=== PATIENT | male | born 1965 | race American Indian/Alaskan Native ===

== ENCOUNTER 2017-01-25 22:30 | Emergency (ER) | payer OTHER ==
[2017-01-25] MEDS ORDERED: TYLENOL PO ONE (23:58)
[2017-01-26 00:18] LABS: Hematocrit 44.1 % (35.5-45.6); Hemoglobin 14.7 gm/dl (11.8-15.2); Mean Corpuscular HGB Conc 33 % (32-34); Mean Corpuscular Hemoglobin 27 pg (28-32); Mean Corpuscular Volume 81 fl (84-94); Red Blood Count 5.45 M/mm3 (3.65-5.03); Red Cell Distribution Width 13.7 % (13.2-15.2); White Blood Count 16.7 K/mm3 (4.5-11.0)
[2017-01-26 00:26] LABS: Platelet Count 280 K/mm3 (140-440)
[2017-01-26 00:47] LABS: BUN/Creatinine Ratio 12.66; Blood Urea Nitrogen 19 mg/dL (9-20); Calcium 9.8 mg/dL (8.4-10.2); Carbon Dioxide 20 mmol/L (22-30); Chloride 95.9 mmol/L (98-107); Glucose 112 mg/dL (75-100); Sodium 133 mmol/L (137-145)
[2017-01-26 01:18] LABS: Anion Gap 21 mmol/L; Potassium 4.2 mmol/L (3.6-5.0)
[2017-01-26 03:40] LABS: Bilirubin,Urine NEG (Negative); Blood,Urine SM (Negative); Ketones,Urine NEG (Negative); Leukocyte Esterase,Urine NEG (Negative); Mucus,Urine FEW /HPF; Nitrite,Urine NEG (Negative); Protein,Urine <15 mg/dL mg/dL (Negative); Urobilinogen,Urine < 2.0 mg/dL (<2.0)
[2017-01-26 03:51] LABS: Anisocytosis 1+; Blastocytes % (Manual) 0 %; Eosinophils % (Manual) 0 % (0.0-4.3)
[2017-01-26 03:52] LABS: Diff Status Complete; Hypochromasia Few; Toxic Vacuolation Few
[2017-01-26 04:00] VITALS: BP 128/80
--- NOTE | 2017-01-26 04:04 | Emergency Department Report ---
HPI - General Chief Complaint: Fever Time Seen by Provider: 01/26/17 02:57 - HPI HPI: This is a 51-year-old -[place] male presents to the emergency department with a few different complaints. First the patient has been having a 1-2 day history of fever that for him reached a MAXIMUM TEMPERATURE of 99.6. He denies any sore throat, cough, chest pain, shortness of breath, rash but does admit to some slight dysuria. He also complains of some elevated blood pressure. He checked it at home earlier and it was about 158/94. For this reason he took an extra lisinopril and called EMS. His third complaint is some swelling in the bilateral lower extremities that has been going on for weeks. He has seen his primary care physician about this, Dr. Wharton, and is set up for a cardiology appointment in the next week or so. He has been taking some Tylenol for his fever. No recent travel or sick contacts at home. He has a past history of hypertension. ED Past Medical Hx - Past Medical History Previous Medical History?: Yes Hx Hypertension: Yes - Surgical History Past Surgical History?: Yes Hx Appendectomy: Yes Additional Surgical History: Hernia repairs at 7 yrs old, 14 years old, and at 21 years old. - Social History Smoking Status: Never Smoker - Medications Home Medications: Home Medications Medication Instructions Recorded Confirmed Last Taken Type Cyclobenzaprine [Flexeril] 10 mg PO Q8H PRN #21 tablet 05/10/15 Unknown Rx Cyclobenzaprine [Flexeril] 10 mg PO TID PRN 05/10/15 05/10/15 Unknown History Ibuprofen [Motrin 800 MG tab] 800 mg PO Q8HR PRN #30 tablet 05/10/15 Unknown Rx amLODIPine [Norvasc] 10 mg PO DAILY 05/10/15 05/10/15 Unknown History Nitrofurantoin [place]/M-Cryst 100 mg PO Q12HR #14 capsule 01/26/17 Unknown Rx [Macrobid CAP] ED Review of Systems ROS: Stated complaint: HYPERTENSION,FEVER Other details as noted in HPI Comment: All other systems reviewed and negative Constitutional: fever. denies: weakness Eyes: denies: eye pain, eye discharge, vision change ENT: denies: ear pain, throat pain Respiratory: denies: cough, shortness of breath Cardiovascular: edema. denies: chest pain Gastrointestinal: denies: abdominal pain, nausea, diarrhea Genitourinary: dysuria. denies: discharge Musculoskeletal: denies: back pain, arthralgia Skin: denies: rash, lesions Neurological: denies: headache, weakness, paresthesias Physical Exam - Physical Exam Vital Signs: Vital Signs 01/25/17 01/26/17 01/26/17 23:29 00:05 02:29 Temperature 99.9 F H Pulse Rate 122 H 106 H Respiratory 20 20 15 Rate Blood Pressure 153/101 O2 Sat by Pulse 99 98 Oximetry 01/26/17 01/26/17 01/26/17 02:30 03:00 03:30 Temperature Pulse Rate 103 H 100 H 97 H Respiratory 21 24 22 Rate Blood Pressure 125/77 131/82 128/80 O2 Sat by Pulse 98 Oximetry Physical Exam: GENERAL: The patient is well-developed well-nourished. HENT: Normocephalic. Atraumatic. Patient has moist mucous membranes. Oropharynx is clear. EYES: Extraocular motions are intact. Pupils equal reactive to light bilaterally. NECK: Supple. Trachea is midline. CHEST/LUNGS: Clear to auscultation. There is no respiratory distress noted. No tachypnea or accessory muscle use. HEART/CARDIOVASCULAR: Regular. There is very mild tachycardia. There is no gallop rub or murmur. ABDOMEN: Abdomen is soft, nontender. Patient has normal bowel sounds. There is no abdominal distention. SKIN: Skin is warm and dry. I do not appreciate any significant lower extremity edema. NEURO: The patient is awake, alert, and oriented. The patient is cooperative. The patient has no focal neurologic deficits. The patient has normal speech and gait. MUSCULOSKELETAL: There is no tenderness or deformity. There is no limitation range of motion. There is no evidence of acute injury. ED Course Vital Signs 01/25/17 01/26/17 01/26/17 23:29 00:05 02:29 Temperature 99.9 F H Pulse Rate 122 H 106 H Respiratory 20 20 15 Rate Blood Pressure 153/101 O2 Sat by Pulse 99 98 Oximetry 01/26/17 01/26/17 01/26/17 02:30 03:00 03:30 Temperature Pulse Rate 103 H 100 H 97 H Respiratory 21 24 22 Rate Blood Pressure 125/77 131/82 128/80 O2 Sat by Pulse 98 Oximetry ED Medical Decision Making - Lab Data Result diagrams: 01/25/17 23:55 01/25/17 23:55 - EKG Data -: EKG Interpreted by Me EKG shows normal: sinus rhythm, axis, intervals, QRS complexes (T waves to the septal and inferior leads), ST-T waves Rate: tachycardia (113 bpm) - EKG Data When compared to previous EKG there are: previous EKG unavailable Interpretation: other (sinus tachycardia, Q waves to the inferior and septal leads) - Medical Decision Making 51-year-old male presents to the emergency department with the complaint of a low-grade fever, some lower leg pain and swelling, and some elevated blood pressure. He had taken a lisinopril but his blood pressure is reasonable by the time he is in the emergency department. He was given a dose of Tylenol and upon reevaluation his fever has resolved in the previous tachycardia has also resolved. I cannot appreciate any significant lower extremity swelling but he feels that it is swollen and slightly tender. He does not have any chest pain or shortness of breath. Vital signs stable throughout his ED course. He was discharged home with instructions and an order to return to outpatient imaging for lower extremity venous Dopplers. If positive for DVT he will be redirected to the emergency department. If negative he will continue to see his PCP and epic cupid analyst as previously scheduled. I missed seeing that he had a slight urinary tract infection but he was prescribed Macrobid and he'll be notified that he can pick it up in the emergency department when he comes in for his venous Doppler. - Differential Diagnosis DVT, UTI, viral syndrome, venous stasis Critical Care Time: No Critical care attestation.: If time is entered above; I have spent that time in minutes in the direct care of this critically ill patient, excluding procedure time. ED Disposition Clinical Impression: Leg swelling Fever Qualifiers: Fever type: unspecified Qualified Code(s): R50.9 - Fever, unspecified Hypertension Qualifiers: Hypertension type: essential hypertension Qualified Code(s): I10 - Essential ( primary) hypertension Disposition: DC- TO HOME OR SELFCARE Is pt being admited?: No Condition: Stable Instructions: Fever in Adults (ED), Leg Edema (ED), Hypertension (ED) Additional Instructions: Please call the phone number and make an appointment to return tomorrow for the outpatient imaging center to have a venous Doppler ultrasound done of the bilateral lower extremities. If it is positive, he will be redirected to the emergency department. If negative, follow up with your primary care physician and the epic cupid analyst as previously scheduled. Try to stay away from foods that are high in salt and caffeinated products to try and help her blood pressure. Keep a blood pressure log. Return to the emergency Department with any worsening of your symptoms or any acute distress. You can use Tylenol every 4 hours and ibuprofen every 6 hours, using weight- based dosing, as needed for fever or discomfort. Referrals: PRIMARY CAREMD [Primary Care Provider] - [facility] Time of Disposition: 04:10
== END 2017-01-26 04:15 | disposition home or self-care (01) ==
LOC: ED 22:30
DX: I10 Essential (primary) hypertension (principal); R50.9 Fever, unspecified; M79.89 Other specified soft tissue disorders
CPT/HCPCS: 36415; 80048; 81001; 83880; 84484; 85007; 85025; 93005; 93010; 99284

== ENCOUNTER 2017-01-26 15:02 | Outpatient (CLI) | payer OTHER ==
--- NOTE | 2017-01-28 07:50 | Vascular Lab Report ---
LOWER EXTREMITY VENOUS DUPLEX: REASON FOR EXAM: Pain and swelling of the lower extremities. COMMENTS ON THE RIGHT: All veins visualized are freely compressible without evidence of internal echogenicity. Flow is spontaneous and phasic throughout. COMMENTS ON THE LEFT: All veins visualized are freely compressible without evidence of internal echogenicity. Flow is spontaneous and phasic throughout. Superficial thrombophlebitis noted in the distal greater saphenous vein IMPRESSION: No evidence of acute or chronic deep venous thrombosis in either lower extremity. Superficial thrombophlebitis in the left greater saphenous vein
== END 2017-01-26 15:03 | disposition home or self-care (01) ==
LOC: VAS 15:02
PROVIDERS: ATTEND Emergency Medicine
DX: I80.02 Phlebitis and thrombophlebitis of superficial vessels of left lower extremity (principal); M79.604 Pain in right leg; M79.89 Other specified soft tissue disorders; I10 Essential (primary) hypertension
CPT/HCPCS: 93970

== ENCOUNTER 2017-04-23 12:32 | Inpatient (IN) | payer OTHER ==
[2017-04-23 13:26] LABS: Basophils % (Auto) 0.8 % (0.0-1.8); Hematocrit 37.9 % (35.5-45.6); Hemoglobin 12.5 gm/dl (11.8-15.2); Mean Corpuscular HGB Conc 33 % (32-34); Mean Corpuscular Hemoglobin 27 pg (28-32); Mean Corpuscular Volume 82 fl (84-94); Platelet Count 510 K/mm3 (140-440); Red Blood Count 4.63 M/mm3 (3.65-5.03); Red Cell Distribution Width 15.1 % (13.2-15.2); White Blood Count 11.1 K/mm3 (4.5-11.0)
[2017-04-23 13:29] LABS: Anion Gap 19 mmol/L; BUN/Creatinine Ratio 31; Blood Urea Nitrogen 43 mg/dL (9-20); Calcium 9.5 mg/dL (8.4-10.2); Carbon Dioxide 27 mmol/L (22-30); Chloride 94.1 mmol/L (98-107); Glucose 154 mg/dL (75-100); Potassium 3.4 mmol/L (3.6-5.0); Sodium 137 mmol/L (137-145)
[2017-04-23] MEDS ORDERED: LOVENOX SUB-Q ONE (13:58)
[2017-04-23] MEDS ORDERED: ZOFRAN IV ONE (14:04)
[2017-04-23] MEDS ORDERED: SUBLIMAZE IV ONE (14:04)
--- NOTE | 2017-04-23 14:12 | Emergency Department Report ---
HPI - General Chief Complaint: Extremity Injury, Lower Time Seen by Provider: 04/23/17 13:55 - HPI HPI: Room 5 The patient is a 51-year-old male presenting with chief complaint of left lower extremities pain and swelling. The patient states in January 2017 diagnosed with a superficial venous thrombosis of the left lower extremity. The patient' s states he was started on aspirin and the pain and swelling decrease however last month he noticed swelling and pain and return. Patient denies chest pain but states he has shortness of breath earlier this month. Patient denies pleurisy. Patient gives his leg pain a score of 10/10 Location: Left lower extremity, see above Duration: [See above] Quality: Pain Severity: 10/10 Modifying factors: [see above] Context: [see above] Mode of transportation: [not driving] ED Past Medical Hx - Past Medical History Hx Hypertension: Yes Additional medical history: Superficial DVT - Surgical History Hx Appendectomy: Yes Additional Surgical History: Hernia repairs at 7 yrs old, 14 years old, and at 21 years old. - Family History Family history: no significant - Social History Smoking Status: Never Smoker Substance Use Type: None - Medications Home Medications: Home Medications Medication Instructions Recorded Confirmed Last Taken Type Cyclobenzaprine [Flexeril] 10 mg PO Q8H PRN #21 tablet 05/10/15 Unknown Rx Cyclobenzaprine [Flexeril] 10 mg PO TID PRN 05/10/15 05/10/15 Unknown History Ibuprofen [Motrin 800 MG tab] 800 mg PO Q8HR PRN #30 tablet 05/10/15 Unknown Rx amLODIPine [Norvasc] 10 mg PO DAILY 05/10/15 05/10/15 Unknown History Nitrofurantoin [place]/M-Cryst 100 mg PO Q12HR #14 capsule 01/26/17 Unknown Rx [Macrobid CAP] ED Review of Systems ROS: Stated complaint: POSS DVT Other details as noted in HPI Respiratory: shortness of breath Cardiovascular: denies: chest pain Musculoskeletal: myalgia Physical Exam - Physical Exam Vital Signs: Vital Signs 04/23/17 12:51 Temperature 98.1 F Pulse Rate 111 H Respiratory 16 Rate Blood Pressure 126/68 O2 Sat by Pulse 98 Oximetry Physical Exam: GENERAL: The patient is well-developed well-nourished male lying on stretcher using cellphone not appearing to be in acute distress. [] HEENT: Normocephalic. Atraumatic. Extraocular motions are intact. Patient has moist mucous membranes. NECK: Supple. Trachea midline CHEST/LUNGS: Clear to auscultation. There is no respiratory distress noted. HEART/CARDIOVASCULAR: Regular. There is tachycardia. There is no gallop rub or murmur. ABDOMEN: Abdomen is soft, nontender. Patient has normal bowel sounds. There is no abdominal distention. SKIN: There is no rash. There is swelling of the left calf. There is no diaphoresis. NEURO: The patient is awake, alert, and oriented. The patient is cooperative. The patient has normal speech MUSCULOSKELETAL: There is no evidence of acute injury. ED Course Vital Signs 04/23/17 12:51 Temperature 98.1 F Pulse Rate 111 H Respiratory 16 Rate Blood Pressure 126/68 O2 Sat by Pulse 98 Oximetry ED Medical Decision Making - Lab Data Result diagrams: 04/23/17 13:01 04/23/17 13:01 Laboratory Tests 04/23/17 04/23/17 13:01 13:01 WBC 11.1 H RBC 4.63 Hgb 12.5 Hct 37.9 MCV 82 L MCH 27 L MCHC 33 RDW 15.1 Plt Count 510 H Lymph % (Auto) 15.9 [place] % (Auto) 8.4 H Eos % (Auto) 1.0 Baso % (Auto) 0.8 Lymph # 1.8 [place] # 0.9 H Eos # 0.1 Baso # 0.1 Seg Neutrophils % 73.9 H Seg Neutrophils # 8.2 H Sodium 137 Potassium 3.4 L Chloride 94.1 L Carbon Dioxide 27 Anion Gap 19 BUN 43 H Creatinine 1.4 Estimated GFR > 60 BUN/Creatinine Ratio 31 Glucose 154 H Calcium 9.5 - Radiology Data Radiology results: report reviewed (left lower extremity Doppler, CT chest), image reviewed (left lower extremity Doppler, CT chest) Left lower extremity Doppler 04/23/17 13:48 - Radiology Dept. Note by ISABELA STREETER [facility] Num: [id number] : 1965 Patient Age: 51 VASCULAR LAB.PRELIMINARY REPORT.LLE VENOUS DUPLEX DONE.EVIDENCE OF EXTENSIVE ACUTE DVT FROM THE LT. DISTAL ILIAC VEIN EXTENDING ALL THE WAY DOWN TO THE LT.DISTAL PTV/PERONEAL VEINS.SVT NOTED IN THE LT.PX GSV AT THE LT.GROIN AND FROM THE LT.PX CALF UP TO THE DS CALF. INFORMED AT 1340. Initialized on 04/23/17 13:48 - END OF NOTE CTA CHEST: HISTORY: Shortness of breath. COMPARISON: none. TECHNIQUE: Helical CT in 1.25mm intervals following IV contrast. Pulmonary embolus protocol. Sagittal and coronal reformatted images. Rotational MIP images. FINDINGS: Contrast bolus is satisfactory. A nonocclusive filling defect is identified in a third order pulmonary artery leading to the postero-lateral left lower lobe. This is best demonstrated on image 122, series 2. No additional pulmonary arterial filling defects are identified. Thyroid gland: Normal. Tracheobronchial tree: Normal. Esophagus: Normal. Heart: Normal. Pericardium: Normal. Mediastinum: Normal. Lung Rodgers: Within normal limits. There is minor discoid atelectasis in the left lower lobe. Pleural Spaces: Normal. Musculoskeletal: Normal. IMPRESSION: Positive for a small nonocclusive pulmonary embolus leading to the left lower lobe. Transcribed By: TTR Dictated By: LINO SEAY JR, MD Electronically Authenticated By: LINO SEAY JR, MD Signed Date/Time: 04/23/17 1504 DD/ 1502 TD/TT: 04/23/17 1504 - Medical Decision Making DVT, PE - Differential Diagnosis DVT, PE Critical care attestation.: If time is entered above; I have spent that time in minutes in the direct care of this critically ill patient, excluding procedure time. ED Disposition Clinical Impression: Left leg DVT, Acute pulmonary embolus Disposition: OP ADMIT IP TO THIS HOSP Is pt being admited?: Yes Does the pt Need Aspirin: No Condition: Fair Time of Disposition: 15:12 (hospitalist paged (Dr. Jones))
[2017-04-23] MEDS ORDERED: NACL 0.9% 1000 ML 1,000 ML IV ONE (14:40)
--- NOTE | 2017-04-23 15:09 | Cat Scan Report ---
CTA CHEST: HISTORY: Shortness of breath. COMPARISON: none. TECHNIQUE: Helical CT in 1.25mm intervals following IV contrast. Pulmonary embolus protocol. Sagittal and coronal reformatted images. Rotational MIP images. FINDINGS: Contrast bolus is satisfactory. A nonocclusive filling defect is identified in a third order pulmonary artery leading to the postero-lateral left lower lobe. This is best demonstrated on image 122, series 2. No additional pulmonary arterial filling defects are identified. Thyroid gland: Normal. Tracheobronchial tree: Normal. Esophagus: Normal. Heart: Normal. Pericardium: Normal. Mediastinum: Normal. Lung Rodgers: Within normal limits. There is minor discoid atelectasis in the left lower lobe. Pleural Spaces: Normal. Musculoskeletal: Normal. IMPRESSION: Positive for a small nonocclusive pulmonary embolus leading to the left lower lobe.
--- NOTE | 2017-04-23 15:29 | History and Physical Report ---
History of Present Illness Chief complaint: My leg hurts and it hurts when i breathe History of present illness: 51 YO Male with DVT, HTN presents to ED for evaluation. Pt states that he has experienced pain in his Left leg for the past is several weeks and has subsequently developed difficulty breathing. Pt states that his symptoms have worsened over the past 2 days. The patient states in January 2017 diagnosed with a superficial venous thrombosis of the left lower extremity and was started on aspirin with an initial improvement in symptoms. Pt states that symptoms have worsened over the past 2 days. Patient denies fever, chills, chest pain, palpitations, recent ill contacts, productive cough. Pt seen and evaluated in ED and underwent CTA chest that revealed pulmonary embolism. Pt admitted to medical floor. Past History Past Medical History: DVT, hypertension Past Surgical History: appendectomy, hernia repair Social history: . denies: smoking, alcohol abuse, prescription drug abuse Family history: hypertension Medications and Allergies Allergies Allergy/AdvReac Type Severity Reaction Status Date / Time ibuprofen Allergy Hives Verified 01/25/17 23:23 Home Medications Medication Instructions Recorded Confirmed Last Taken Type Lisinopril/Hydrochlorothiazide 1 tab PO QDAY 04/23/17 04/23/17 Unknown History [Zestoretic 20-25 mg] Active Meds: Active Medications Sodium Chloride (Nacl 0.9% 1000 Ml) 1,000 mls @ 999 mls/hr IV ONCE ONE Stop: 04/23/17 15:40 Last Admin: 04/23/17 15:18 Dose: 999 mls/hr Review of Systems Constitutional: no weight loss, no weight gain, no fever, no chills Ears, nose, mouth and throat: no ear pain, no ear discharge, no tinnitis, no decreased hearing, no nose pain Cardiovascular: chest pain, no orthopnea, no palpitations, no rapid/irregular heart beat Respiratory: pleurisy, no cough, no hemoptysis, no shortness of breath, no dyspnea on exertion, no sleep apnea, no respiratory infections Gastrointestinal: no abdominal pain, no nausea, no vomiting, no diarrhea Genitourinary Male: no hematuria, no flank pain, no discharge, no urinary frequency, no urinary hesitancy, no nocturia Rectal: no pain, no incontinence, no bleeding Musculoskeletal: no neck stiffness, no neck pain, no shooting arm pain, no arm numbness/tingling, no low back pain, no shooting leg pain Integumentary: no rash, no pruritis, no redness, no sores, no wounds, no jaundice Neurological: no head injury, no transient paralysis, no paralysis, no weakness , no parathesias, no numbness Psychiatric: no anxiety, no memory loss, no change in sleep habits, no sleep disturbances Endocrine: no cold intolerance, no heat intolerance, no polyphagia, no excessive thirst, no polydipsia Hematologic/Lymphatic: no easy bruising, no easy bleeding Allergic/Immunologic: no urticaria, no allergic rhinitis, no wheezing Exam - Constitutional Vitals: Temp Pulse Resp BP Pulse Ox 98.1 F 111 H 16 126/68 98 04/23/17 12:51 04/23/17 12:51 04/23/17 12:51 04/23/17 12:51 04/23/17 12:51 General appearance: Present: mild distress - EENT Eyes: Present: PERRL ENT: hearing intact, clear oral mucosa - Neck Neck: Present: supple, normal ROM - Respiratory Respiratory effort: normal Respiratory: bilateral: diminished, wheezing - Cardiovascular Heart Sounds: Present: S1 & S2. Absent: rub, click - Extremities Extremities: pulses symmetrical, No edema Extremity abnormal: edema Peripheral Pulses: within normal limits - Abdominal General gastrointestinal: Present: soft, non-tender, non-distended, normal bowel sounds Male genitourinary: Present: normal - Integumentary Integumentary: Present: clear, warm, dry - Musculoskeletal Musculoskeletal: gait normal, strength equal bilaterally - Psychiatric Psychiatric: appropriate mood/affect, intact judgment & insight - Neurologic Neurologic: CNII-XII intact, moves all extremities Results - Labs CBC & Chem 7: 04/23/17 13:01 04/23/17 13:01 Labs: Abnormal lab results 04/23/17 04/23/17 Range/Units 13:01 13:01 WBC 11.1 H (4.5-11.0) K/mm3 MCV 82 L (84-94) fl MCH 27 L (28-32) pg Plt Count 510 H (140-440) K/mm3 [place] % (Auto) 8.4 H (0.0-7.3) % [place] # 0.9 H (0.0-0.8) K/mm3 Seg Neutrophils % 73.9 H (40.0-70.0) % Seg Neutrophils # 8.2 H (1.8-7.7) K/mm3 Potassium 3.4 L (3.6-5.0) mmol/L Chloride 94.1 L (98-107) mmol/L BUN 43 H (9-20) mg/dL Glucose 154 H (75-100) mg/dL Assessment and Plan - Patient Problems (1) Acute pulmonary embolus Current Visit: Yes Status: Acute Plan to address problem: therapeutic anticoagulation, supplemental oxygen, nebs, supportive care. (2) HTN (hypertension) Current Visit: Yes Status: Acute Plan to address problem: monitor BP q shift, continue medical management (3) Left leg DVT Current Visit: Yes Status: Acute Plan to address problem: LLE duplex, therapeutic anticoagulation, supportive care, pain control (4) Acute respiratory failure Current Visit: Yes Status: Acute Plan to address problem: Supplemental oxygen, nebs, aspiration precautions, incentive spirometry, pain control, early ambulation. (5) DVT prophylaxis Current Visit: Yes Status: Acute
[2017-04-23] MEDS ORDERED: PROVENTIL IH PRN (15:30)
[2017-04-23] MEDS ORDERED: ZOFRAN IV PRN (15:30)
[2017-04-23] MEDS ORDERED: TYLENOL PO PRN (15:30)
[2017-04-23] MEDS: MORPHINE IV PRN ×2 (17:59→22:25)
[2017-04-23] MEDS: ELIQUIS PO SCH (22:23)
[2017-04-24 08:01] VITALS: BP 122/77
--- NOTE | 2017-04-24 08:52 | Progress Note ---
Assessment and Plan Assessment and plan: PE DVT Leg pain Hypertension - Venous Doppler shows extensive acute DVT from the left distal iliac vein extending all the way down to the left distal PVD/peroneal veins. Extensive superficial venous thrombosis - CTA showed lower lung zone DVT - Patient is on Apixaban now, was on lovenox - Pain control - Monitor vital signs Disposition - Possible discharge tomorrow Hospitalist Physical - Physical exam Narrative exam: Not in cardiopulmonary distress. The patient appeared well nourished and normally developed. Vital signs as documented. Head exam is unremarkable. No scleral icterus . Neck is without jugular venous distension, thyromegaly, or carotid bruits. Lungs are clear to auscultation. Cardiac exam reveals regular rate and Rhythm. First and second heart sounds normal. No murmurs, rubs or gallops. Abdominal exam reveals normal bowel sounds, no masses, no organomegaly and no aortic enlargement. Extremities are nonedematous and both femoral and pedal pulses are normal. POLE FRAMER: Alert and oriented 3. No focal weakness. - Constitutional Vitals: Temp Pulse Resp BP Pulse Ox 98.9 F 91 H 19 122/77 95 04/24/17 07:33 04/24/17 07:33 04/24/17 07:33 04/24/17 07:33 04/24/17 07:33 General appearance: Present: mild distress Results - Labs CBC & Chem 7: 04/23/17 13:01 04/23/17 13:01 Labs: Laboratory Last Values WBC 11.1 K/mm3 (4.5-11.0) H 04/23/17 13:01 RBC 4.63 M/mm3 (3.65-5.03) 04/23/17 13:01 Hgb 12.5 gm/dl (11.8-15.2) 04/23/17 13:01 Hct 37.9 % (35.5-45.6) 04/23/17 13:01 MCV 82 fl (84-94) L 04/23/17 13:01 MCH 27 pg (28-32) L 04/23/17 13:01 MCHC 33 % (32-34) 04/23/17 13:01 RDW 15.1 % (13.2-15.2) 04/23/17 13:01 Plt Count 510 K/mm3 (140-440) H 04/23/17 13:01 Lymph % (Auto) 15.9 % (13.4-35.0) 04/23/17 13:01 [place] % (Auto) 8.4 % (0.0-7.3) H 04/23/17 13:01 Eos % (Auto) 1.0 % (0.0-4.3) 04/23/17 13:01 Baso % (Auto) 0.8 % (0.0-1.8) 04/23/17 13:01 Lymph # 1.8 K/mm3 (1.2-5.4) 04/23/17 13:01 [place] # 0.9 K/mm3 (0.0-0.8) H 04/23/17 13:01 Eos # 0.1 K/mm3 (0.0-0.4) 04/23/17 13:01 Baso # 0.1 K/mm3 (0.0-0.1) 04/23/17 13:01 Seg Neutrophils % 73.9 % (40.0-70.0) H 04/23/17 13:01 Seg Neutrophils # 8.2 K/mm3 (1.8-7.7) H 04/23/17 13:01 Sodium 137 mmol/L (137-145) 04/23/17 13:01 Potassium 3.4 mmol/L (3.6-5.0) L 04/23/17 13:01 Chloride 94.1 mmol/L (98-107) L 04/23/17 13:01 Carbon Dioxide 27 mmol/L (22-30) 04/23/17 13:01 Anion Gap 19 mmol/L 04/23/17 13:01 BUN 43 mg/dL (9-20) H 04/23/17 13:01 Creatinine 1.4 mg/dL (0.8-1.5) 04/23/17 13:01 Estimated GFR > 60 ml/min 04/23/17 13:01 BUN/Creatinine Ratio 31 % 04/23/17 13:01 Glucose 154 mg/dL (75-100) H 04/23/17 13:01 Calcium 9.5 mg/dL (8.4-10.2) 04/23/17 13:01 - Imaging and Cardiology CT scan - chest: image reviewed (PE on the left lower lung zone) Venous US: image reviewed (extensive PE on the left lower extremity)
[2017-04-24] MEDS: ELIQUIS PO SCH (09:31)
[2017-04-24] MEDS ORDERED: NON-FORMULARY (Lisinopril/Hydrochlorothiazide [Zestoretic 20-25 Mg] 1 TAB) PO SCH (10:00)
[2017-04-24] MEDS ORDERED: HCTZ PO SCH (10:00)
[2017-04-24] MEDS ORDERED: ZESTRIL PO SCH (10:00)
--- NOTE | 2017-04-24 11:45 | Discharge Summary ---
Providers - Providers Date of Admission: 04/23/17 15:30 Date of discharge: 04/24/17 Attending physician: AFUA BURNS MD Primary care physician: MAINTENANCE HELPER UTILITY ENGINEER Hospitalization Reason for admission: DVT, PE Condition: Stable Hospital course: 51 YO Male with DVT, HTN presents to ED for evaluation. Pt states that he has experienced pain in his Left leg for the past is several weeks and has subsequently developed difficulty breathing. Pt states that his symptoms have worsened over the past 2 days. The patient states in January 2017 diagnosed with a superficial venous thrombosis of the left lower extremity and was started on aspirin with an initial improvement in symptoms. Pt states that symptoms have worsened over the past 2 days. Patient denies fever, chills, chest pain, palpitations, recent ill contacts, cough. Pt seen and evaluated in ED and underwent CTA chest that revealed pulmonary embolism. Pt admitted to medical floor. Patient was admitted to the floor and started with lovenox, and later Lovenox was changed to Eliquis. Patient was hemodynamically stable, no SOB. Patient discharged home with eliquis. Patient was given coupon for eliquis. Management plan was explained to the patient and verbalized he understood. Disposition: DC-01 TO HOME OR SELFCARE Time spent for discharge: 31 minutes - Discharge Diagnoses (1) Acute pulmonary embolus Status: Acute (2) HTN (hypertension) Status: Acute (3) Left leg DVT Status: Acute Core Measure Documentation - Palliative Care Palliative Care/ Comfort Measures: Not Applicable - Core Measures Any of the following diagnoses?: DVT/PE - VTE Discharge Requirements Deep Vein Thrombosis/Pulmonary Embolism Present on Admission: Yes Has pt received <5 days of overlap therapy or INR<2.0: No Anticoagulant overlap therapy prescribed at discharge: No Contraindication No Overlap Therapy order at DC: Not Indicated Exam - Physical Exam Narrative exam: Not in cardiopulmonary distress. The patient appeared well nourished and normally developed. Vital signs as documented. Head exam is unremarkable. No scleral icterus . Neck is without jugular venous distension, thyromegaly, or carotid bruits. Lungs are clear to auscultation. Cardiac exam reveals regular rate and Rhythm. First and second heart sounds normal. No murmurs, rubs or gallops. Abdominal exam reveals normal bowel sounds, no masses, no organomegaly and no aortic enlargement. Extremities edematous left leg. 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 No focal weakness. - Constitutional Vitals: Temp Pulse Resp BP Pulse Ox 98.9 F 91 H 19 122/77 95 04/24/17 07:33 04/24/17 07:33 04/24/17 07:33 04/24/17 07:33 04/24/17 07:33 Plan Activity: advance as tolerated Weight Bearing Status: Weight Bear as Tolerated Diet: low cholesterol Additional Instructions: Please schedule him with in 1 week @[facility] Follow up with: PRIMARY MD LEW [Primary Care Provider] - 7 Days Prescriptions: Apixaban [Eliquis] 10 mg PO Q12HR #74 tablet Lisinopril/Hydrochlorothiazide [Zestoretic 20-25 mg] 1 tab PO QDAY #30 tablet
[2017-04-24] MEDS ORDERED: Fluarix Quad 2017-2018(36 MOS+ IM ONE (12:00)
--- NOTE | 2017-04-24 14:19 | Vascular Lab Report ---
Left Lower Extremity Venous Duplex Study: Reason for Exam: Pain and swelling of the left lower extremity. Comments on the Right: A limited duplex study was done of the proximal veins of the right lower extremity. All veins visualized are freely compressible without evidence of internal echogenicity. Flow is spontaneous and phasic throughout. No evidence of acute or chronic thrombus is seen in any of the vessels visualized. Comments on the Left: There is deep venous thrombosis extending from the external iliac vein superiorly to the tibial veins inferiorly. This extensive deep venous thrombosis involves the external iliac vein, common femoral vein, profunda femoral vein, femoral vein, and tibial veins. There is extension into the greater saphenous vein. Spontaneous and phasic flow is absent proximally. Impression: Extensive left lower extremity deep venous thrombosis with extension into the greater saphenous vein.
== END 2017-04-24 17:50 | disposition home or self-care (01) | DRG 175 ==
LOC: ED 12:32 → 3A 15:30
PROVIDERS: ADMIT Internal Medicine; ATTEND Internal Medicine
PROC: 3E0234Z Introduction of Serum, Toxoid and Vaccine into Muscle, Percutaneous Approach (ICD-10-PCS; principal; 2017-04-24)
DX: I26.99 Other pulmonary embolism without acute cor pulmonale (principal); J96.00 Acute respiratory failure, unspecified whether with hypoxia or hypercapnia; I82.422 Acute embolism and thrombosis of left iliac vein; I10 Essential (primary) hypertension; Z90.49 Acquired absence of other specified parts of digestive tract; Z79.899 Other long term (current) drug therapy; Z82.49 Family history of ischemic heart disease and other diseases of the circulatory system; Z23 Encounter for immunization
CPT/HCPCS: 36415; 71275; 80048; 85025; 90686; 96361; 96374; 96375; 99285; J1650; J2270; J2405; J3010; J7030; Q9967